=== PATIENT | female | born 1985 | race American Indian/Alaskan Native ===

== ENCOUNTER 2018-12-12 15:44 | Emergency (ER) | payer MEDICAID ==
[2018-12-12] MEDS ORDERED: Sodium Chloride 0.9% 1,000 ML IV ONE (16:10)
[2018-12-12] MEDS ORDERED: Ketorolac 30 MG/ML SDV IVPUSH ONE (16:11)
--- NOTE | 2018-12-12 16:18 | EDM.PDOC ---
ED HPI GENERAL MEDICAL PROBLEM - General Chief Complaint: Headache Stated Complaint: HEADACHE, DIZZY Time Seen by Provider: 12/12/18 15:54 Source of Information: Reports: Patient History Limitations: Reports: No Limitations - History of Present Illness INITIAL COMMENTS - FREE TEXT/NARRATIVE: Presents reporting a three-day history of headache. The patient has a history of migraine headache including during her past pregnancies. This headache is frontal radiating all over the head and is accompanied by photophobia, nausea. She has tried her usual treatments of increasing oral fluids, by mouth Tylenol and sleeping in a dark room. She is 14 weeks . Her supervising OB physician is in [place]. She has an appointment on 01/06/20. Denies dysuria, vomiting, vaginal symptoms. Her has been uncomplicated. 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 - Physical Exam Exam: See Below Exam Limited By: No Limitations General Appearance: Alert, No Apparent Distress Ears: Normal External Exam, Normal TMs Nose: Normal Inspection Throat/Mouth: Normal Inspection, Normal Oropharynx Head Exam: Atraumatic, Normocephalic Neck: Normal Inspection Respiratory/Chest: No Respiratory Distress, Lungs Clear, Normal Breath Sounds Cardiovascular: Normal Peripheral Pulses, Regular Rate, Rhythm, No Murmur Neuro Exam (Abbreviated): Alert, Oriented, CN II-XII Intact, No Motor/Sensory Deficits Back Exam: Normal Inspection Extremities: Normal Inspection Psychiatric: Normal Affect, Normal Mood Skin Exam: Warm, Dry, Intact, Normal Color, No Rash Course - Vital Signs Last Recorded V/S: Last Vital Signs Temp 36.7 C 12/12/18 15:54 Pulse 72 12/12/18 15:54 Resp 18 12/12/18 15:54 BP 118/79 12/12/18 15:54 Pulse Ox 98 12/12/18 15:54 - Orders/Labs/Meds Orders: Active Orders 24 hr Category Date Time Status Morphine Med 12/12/18 17:07 Once 2 mg IVPUSH ONETIME ONE Sodium Chloride 0.9% [Normal Saline] 1,000 ml Med 12/12/18 16:10 Ordered IV STAT Medication Orders Sodium Chloride (Normal Saline) 1,000 mls @ 999 mls/hr IV STAT ONE Stop: 12/12/18 17:10 Last Admin: 12/12/18 16:26 Dose: 999 mls/hr Meds: Medications Generic Name Dose Route Start Last Admin Trade Name Freq PRN Reason Stop Dose Admin Sodium Chloride 1,000 mls @ 999 mls/hr 12/12/18 16:10 12/12/18 16:26 Normal Saline IV 12/12/18 17:10 999 mls/hr STAT ONE Administration Discontinued Medications Generic Name Dose Route Start Last Admin Trade Name Freq PRN Reason Stop Dose Admin Ketorolac Tromethamine 30 mg 12/12/18 16:11 12/12/18 16:27 Toradol IVPUSH 12/12/18 16:12 30 mg ONETIME ONE Administration - Re-Assessments/Exams Free Text/Narrative Re-Assessment/Exam: 12/12/18 17:07 The patient states that she usually gets IV fluids, IV Toradol and IV morphine for her headaches when she has them during her pregnancies. She was given 500 mL of IV fluids and 30 mg of IV Toradol. After about 45 minutes she had no relief from her headache. Therefore, 2 mg of IV morphine was given. Free Text/Narrative Re-Assessment/Exam: Patient states that the headache is better but has migrated to the low occipital area. She states that the morphine helped her most like 2 more milligrams before she goes home. 12/12/18 17:57 Departure - Departure Time of Disposition: 18:14 Disposition: Home, Self-Care 01 Condition: Good Clinical Impression: Migraine headache Qualifiers: Migraine type: other Status migrainosus presence: without status migrainosus Intractability: not intractable Qualified Code(s): G43.809 - Other migraine, not intractable, without status migrainosus - Discharge Information Referrals: PCP,Unknown [Primary Care Provider[facility] - [facility] [Ordering Only Provider] - [facility] [Outside] Forms: ED Department Discharge Additional Instructions: The following information is given to patients seen in the emergency department who are being discharged to home. This information is to outline your options for follow-up care. We provide all patients seen in our emergency department with a follow-up referral. The need for follow-up, as well as the timing and circumstances, are variable depending upon the specifics of your emergency department visit. If you don't have a primary care physician on staff, we will provide you with a referral. We always advise you to contact your personal physician following an emergency department visit to inform them of the circumstance of the visit and for follow-up with them and/or the need for any referrals to a consulting specialist. The emergency department will also refer you to a specialist when appropriate. This referral assures that you have the opportunity for follow-up care with a specialist. All of these measure are taken in an effort to provide you with optimal care, which includes your follow-up. Under all circumstances we always encourage you to contact your private physician who remains a resource for coordinating your care. When calling for follow-up care, please make the office aware that this follow-up is from your recent emergency room visit. If for any reason you are refused follow-up, please contact the [facility] Emergency Department at and asked to speak to the emergency department charge nurse. 1. Follow-up with your OB provider as previously scheduled - My Orders Last 24 Hours: My Active Orders 12/12/18 16:10 Sodium Chloride 0.9% [Normal Saline] 1,000 ml IV STAT 12/12/18 17:07 Morphine 2 mg IVPUSH ONETIME ONE - Assessment/Plan Last 24 Hours: My Active Orders 12/12/18 16:10 Sodium Chloride 0.9% [Normal Saline] 1,000 ml IV STAT 12/12/18 17:07 Morphine 2 mg IVPUSH ONETIME ONE
[2018-12-12] MEDS ORDERED: Morphine 2 MG/ML Syringe IVPUSH ONE ×2 (17:07→17:57)
== END 2018-12-12 18:33 | disposition home or self-care (01) ==
LOC: MW.ED 15:44
DX: O99.352 Diseases of the nervous system complicating pregnancy, second trimester (principal); G43.809 Other migraine, not intractable, without status migrainosus; Z88.1 Allergy status to other antibiotic agents; Z3A.14 14 weeks gestation of pregnancy
CPT/HCPCS: 96361; 96374; 96375; 96376; 99284; J1885; J2270; J7040; 99283

== ENCOUNTER 2018-12-13 18:22 | Emergency (ER) | payer MEDICAID ==
[2018-12-13] MEDS ORDERED: Ondansetron 4 MG/2 ML SDV IVPUSH ONE (18:43)
[2018-12-13] MEDS ORDERED: Acetaminophen 500 MG Tab PO ONE (18:45)
[2018-12-13] MEDS ORDERED: Sodium Chloride 0.9% 1,000 ML IV ONE (18:46)
--- NOTE | 2018-12-13 18:48 | EDM.PDOC ---
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 She denies abdominal pain cramping or other concern. There's been no associated trauma Review of systems: As per history of present illness and below otherwise all systems reviewed and negative. Past medical history: As per history of present illness and as reviewed below otherwise noncontributory. Surgical history: As per history of present illness and as reviewed below otherwise noncontributory. Social history: No reported history of drug or alcohol abuse. Family history: As per history of present illness and as reviewed below otherwise noncontributory. Physical exam: HEENT: Atraumatic, normocephalic, pupils reactive, negative for conjunctival pallor or scleral icterus, mucous membranes moist, throat clear, neck supple, nontender, trachea midline. Lungs: Clear to auscultation, breath sounds equal bilaterally, chest nontender. Heart: S1S2, regular, negative for clicks, rubs, or JVD. Abdomen: Soft, nondistended, nontender. Negative for masses or hepatosplenomegaly. Negative for costovertebral tenderness. Pelvis: Stable nontender. Genitourinary: Deferred. Rectal: Deferred. Extremities: Atraumatic, negative for cords or calf pain. Neurovascular unremarkable. Neuro: Awake, alert, oriented. Cranial nerves II through XII unremarkable. Cerebellum unremarkable. Motor and sensory unremarkable throughout. Exam nonfocal. Diagnostics: heart tones Therapeutics: Saline 1 L bolus Tylenol 1 g by mouth Zofran 4 mg Impression: #1 history of 14 week twin gestations #2 threatened miscarriage #3 migraine headache Definitive disposition and diagnosis as appropriate pending reevaluation and review of above. 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 ED EXAM, GENERAL - Physical Exam Exam: See Below (See dictation) Course - Vital Signs Last Recorded V/S: Last Vital Signs Temp 35.9 C 12/13/18 18:37 Pulse 86 12/13/18 18:37 Resp 17 12/13/18 18:37 BP 99/69 12/13/18 18:37 Pulse Ox 99 12/13/18 18:37 - Orders/Labs/Meds Orders: Active Orders 24 hr Category Date Time Status Heart Tones [RC] ASDIRECTED Care 12/13/18 18:44 Active Meds: Medications Discontinued Medications Generic Name Dose Route Start Last Admin Trade Name Bobbyq PRN Reason Stop Dose Admin Acetaminophen 1,000 mg 12/13/18 18:45 12/13/18 19:04 Tylenol Extra Strength PO 12/13/18 18:46 1,000 mg ONETIME ONE Administration Sodium Chloride 1,000 mls @ 999 mls/hr 12/13/18 18:46 12/13/18 19:04 Normal Saline IV 12/13/18 19:46 999 mls/hr .Bolus ONE Administration Ondansetron HCl 4 mg 12/13/18 18:43 12/13/18 19:04 Zofran IVPUSH 12/13/18 18:44 4 mg ONETIME ONE Administration Departure - Departure Time of Disposition: 20:10 Disposition: Home, Self-Care 01 Condition: Good Clinical Impression: Threatened Migraine headache Qualifiers: Migraine type: other Status migrainosus presence: without status migrainosus Intractability: not intractable Qualified Code(s): G43.809 - Other migraine, not intractable, without status migrainosus - Discharge Information Referrals: PCP,None [Primary Care Provider] - Forms: ED Department Discharge Additional Instructions: The following information is given to patients seen in the emergency department who are being discharged to home. This information is to outline your options for follow-up care. We provide all patients seen in our emergency department with a follow-up referral. The need for follow-up, as well as the timing and circumstances, are variable depending upon the specifics of your emergency department visit. If you don't have a primary care physician on staff, we will provide you with a referral. We always advise you to contact your personal physician following an emergency department visit to inform them of the circumstance of the visit and for follow-up with them and/or the need for any referrals to a consulting specialist. The emergency department will also refer you to a specialist when appropriate. This referral assures that you have the opportunity for followup care with a specialist. All of these measure are taken in an effort to provide you with optimal care, which includes your followup. Under all circumstances we always encourage you to contact your private physician who remains a resource for coordinating your care. When calling for followup care, please make the office aware that this follow-up is from your recent emergency room visit. If for any reason you are refused follow-up, please contact the [facility] emergency department at and asked to speak to the emergency department charge nurse. 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
== END 2018-12-13 20:27 | disposition home or self-care (01) ==
LOC: MW.ED 18:22
DX: O20.0 Threatened abortion (principal); O99.352 Diseases of the nervous system complicating pregnancy, second trimester; G43.809 Other migraine, not intractable, without status migrainosus; O30.002 Twin pregnancy, unspecified number of placenta and unspecified number of amniotic sacs, second trimester; Z88.1 Allergy status to other antibiotic agents; Z3A.14 14 weeks gestation of pregnancy
CPT/HCPCS: 96361; 96374; 99283; A9270; J2405; J7040

== ENCOUNTER 2018-12-14 17:13 | Emergency (ER) | payer MEDICAID ==
--- NOTE | 2018-12-14 17:29 | EDM.PDOC ---
ED HPI GENERAL MEDICAL PROBLEM - General Stated Complaint: BLEEDING Time Seen by Provider: 12/14/18 17:18 Source of Information: Reports: Patient History Limitations: Reports: No Limitations - History of Present Illness INITIAL COMMENTS - FREE TEXT/NARRATIVE: HISTORY AND PHYSICAL: History of present illness: Patient is a 33-year-old female who presents to the emergency room today with complaints of vaginal bleeding in . Patient has been seen the 2 previous days for migraine headache, was treated with IV fluids and medications. She states that yesterday she started spotting which has continued into today. Continues to have intermittent headache and nausea. States she currently has a frontal headache with out noise or light sensitivity. Denies any current nausea or vomiting. Denies any abdominal pain or cramping. Patient denies any fever, chills, neck pain/stiffness, change in vision, syncope or near syncope. Denies any chest pain, back pain, shortness of breath or cough. Denies any diarrhea, constipation or dysuria. Has not noted any blood in urine or stool. Patient has been eating and drinking appropriately. LMP: August [address] Huff in [facility] (Patient lives in [place]) P:5 Review of systems: As per history of present illness and below otherwise all systems reviewed and negative. Past medical history: As per history of present illness and as reviewed below otherwise noncontributory. Surgical history: As per history of present illness and as reviewed below otherwise noncontributory. Social history: See social history for further information Family history: As per history of present illness and as reviewed below otherwise noncontributory. Physical exam: General: Well-developed and well-nourished 33-year-old female. Alert and oriented. Nontoxic appearing and in no acute distress. HEENT: Atraumatic, normocephalic, pupils equal and reactive bilaterally, negative for conjunctival pallor or scleral icterus, mucous membranes moist, TMs normal bilaterally, throat clear, neck supple, nontender, trachea midline. No drooling or trismus noted. No meningeal signs. No hot potato voice noted. Lungs: Clear to auscultation, breath sounds equal bilaterally, chest nontender. Heart: S1S2, regular rate and rhythm without overt murmur Abdomen: Soft, nondistended, nontender. Negative for masses or hepatosplenomegaly. Negative for costovertebral tenderness. Pelvis: Stable nontender. Genitourinary: Deferred. Rectal: Deferred. Skin: Intact, warm, dry. No lesions or rashes noted. Extremities: Atraumatic, moves all extremities per self without difficulty or deficits, negative for cords or calf pain. Neurovascular unremarkable. Neuro: Awake, alert, oriented. Cranial nerves II through XII unremarkable. Cerebellum unremarkable. Motor and sensory unremarkable throughout. Exam nonfocal. Notes: Patient states that she had previously established care with an UTILITY TELLER in [facility] she had planned to get her tubes tied. Shortly after establishing that relationship she had found out she was , therefore continued her UTILITY TELLER care through them. She does live in [place] and does plan on finding a care provider here to manage her . Lab work is unremarkable. Ultrasound shows single living intrauterine twin pregnancies, the chronicity and amnionicity of which are uncertain on the provided views. Small hypoechoic collection adjacent to the superior aspect of the gestational sac, away from the os, may represent a small subchorionic hemorrhage. Nonemergent follow-up US is recommended for more complete evaluation. Diagnostics were shared with the patient. Encouraged her to follow- up and she does need a repeat quantitative hCG and ultrasound. Supportive care measures were reviewed and discussed. Voices understanding and is agreeable to plan of care. Denies any further questions or concerns at this time. Diagnostics: CBC, CMP, AB/RH, UA, OB ultrasound Therapeutics: None Prescription: None Impression: Threatened Plan: 1. Tylenol as needed for pain management. 2. Follow-up with your UTILITY TELLER as we discussed, need to have your quant HCG repeated on Tuesday. It would be beneficial for you to establish care with an OBGYN here in [place] if you plan on delivering or needing any future OB care here. 3. Return to the ED as needed and as discussed. Definitive disposition and diagnosis as appropriate pending reevaluation and review of above. 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 ED EXAM - Physical Exam Exam: See Below (See dictation) Course - Vital Signs Last Recorded V/S: Last Vital Signs Temp 97.9 F 12/14/18 17:33 Pulse 53 L 12/14/18 19:09 Resp 17 12/14/18 19:09 BP 120/49 L 12/14/18 19:09 Pulse Ox 100 12/14/18 19:09 - Orders/Labs/Meds Labs: Laboratory Tests 12/14/18 12/14/18 12/14/18 Range/Units 17:36 17:45 17:45 WBC 7.88 (4.0-11.0) K/uL RBC 4.89 (4.30-5.90) M/uL Hgb 10.2 L (12.0-16.0) g/dL Hct 33.4 L (36.0-46.0) % MCV 68.3 L (80.0-98.0) fL MCH 20.9 L (27.0-32.0) pg MCHC 30.5 L (31.0-37.0) g/dL RDW Std Deviation 42.9 (28.0-62.0) fl RDW Coeff of Adenike 17 H (11.0-15.0) % Plt Count 341 (150-400) K/uL MPV 9.90 (7.40-12.00) fL Neut % (Auto) 69.1 (48.0-80.0) % Lymph % (Auto) 24.6 (16.0-40.0) % Alger % (Auto) 4.8 (0.0-15.0) % Eos % (Auto) 1.4 (0.0-7.0) % Baso % (Auto) 0.1 (0.0-1.5) % Neut # (Auto) 5.4 (1.4-5.7) K/uL Lymph # (Auto) 1.9 (0.6-2.4) K/uL Alger # (Auto) 0.4 (0.0-0.8) K/uL Eos # (Auto) 0.1 (0.0-0.7) K/uL Baso # (Auto) 0.0 (0.0-0.1) K/uL Nucleated RBC % 0.0 /100WBC Nucleated RBCs # 0 K/uL Sodium 137 (136-145) mmol/L Potassium 3.8 (3.5-5.1) mmol/L Chloride 107 (98-107) mmol/L Carbon Dioxide 20.5 L (21.0-32.0) mmol/L BUN 8 (7.0-18.0) mg/dL Creatinine 0.6 (0.6-1.0) mg/dL Est Cr Clr Drug Dosing 156.78 mL/min Estimated GFR (MDRD) > 60.0 ml/min Glucose 88 (74-106) mg/dL Calcium 8.9 (8.5-10.1) mg/dL Total Bilirubin 0.3 (0.2-1.0) mg/dL AST 13 L (15-37) IU/L ALT 21 (14-63) IU/L Alkaline Phosphatase 95 (46-116) U/L Total Protein 7.5 (6.4-8.2) g/dL Albumin 2.6 L (3.4-5.0) g/dL Globulin 4.9 H (2.6-4.0) g/dL Albumin/Globulin Ratio 0.5 L (0.9-1.6) HCG, Quant 275657.0 mIU/mL Urine Color YELLOW Urine Appearance CLEAR Urine pH 5.5 (5.0-8.0) Ur Specific Frazee 1.025 (1.001-1.035) Urine Protein NEGATIVE (NEGATIVE) mg/dL Urine Glucose (UA) NEGATIVE (NEGATIVE) mg/dL Urine Ketones NEGATIVE (NEGATIVE) mg/dL Urine Occult Blood LARGE H (NEGATIVE) Urine Nitrite NEGATIVE (NEGATIVE) Urine Bilirubin NEGATIVE (NEGATIVE) Urine Urobilinogen 0.2 (<2.0) EU/dL Ur Leukocyte Esterase NEGATIVE (NEGATIVE) Urine RBC 3-5 (0-2/HPF) Urine WBC 2-3 (0-5/HPF) Ur Epithelial Cells FEW (NONE-FEW) Amorphous Sediment FEW (NEGATIVE) Urine Bacteria FEW (NEGATIVE) Urine Mucus FEW (NONE-MOD) Blood Type 12/14/18 Range/Units 17:45 WBC (4.0-11.0) K/uL RBC (4.30-5.90) M/uL Hgb (12.0-16.0) g/dL Hct (36.0-46.0) % MCV (80.0-98.0) fL MCH (27.0-32.0) pg MCHC (31.0-37.0) g/dL RDW Std Deviation (28.0-62.0) fl RDW Coeff of Adenike (11.0-15.0) % Plt Count (150-400) K/uL MPV (7.40-12.00) fL Neut % (Auto) (48.0-80.0) % Lymph % (Auto) (16.0-40.0) % Alger % (Auto) (0.0-15.0) % Eos % (Auto) (0.0-7.0) % Baso % (Auto) (0.0-1.5) % Neut # (Auto) (1.4-5.7) K/uL Lymph # (Auto) (0.6-2.4) K/uL Alger # (Auto) (0.0-0.8) K/uL Eos # (Auto) (0.0-0.7) K/uL Baso # (Auto) (0.0-0.1) K/uL Nucleated RBC % /100WBC Nucleated RBCs # K/uL Sodium (136-145) mmol/L Potassium (3.5-5.1) mmol/L Chloride (98-107) mmol/L Carbon Dioxide (21.0-32.0) mmol/L BUN (7.0-18.0) mg/dL Creatinine (0.6-1.0) mg/dL Est Cr Clr Drug Dosing mL/min Estimated GFR (MDRD) ml/min Glucose (74-106) mg/dL Calcium (8.5-10.1) mg/dL Total Bilirubin (0.2-1.0) mg/dL AST (15-37) IU/L ALT (14-63) IU/L Alkaline Phosphatase (46-116) U/L Total Protein (6.4-8.2) g/dL Albumin (3.4-5.0) g/dL Globulin (2.6-4.0) g/dL Albumin/Globulin Ratio (0.9-1.6) HCG, Quant mIU/mL Urine Color Urine Appearance Urine pH (5.0-8.0) Ur Specific Frazee (1.001-1.035) Urine Protein (NEGATIVE) mg/dL Urine Glucose (UA) (NEGATIVE) mg/dL Urine Ketones (NEGATIVE) mg/dL Urine Occult Blood (NEGATIVE) Urine Nitrite (NEGATIVE) Urine Bilirubin (NEGATIVE) Urine Urobilinogen (<2.0) EU/dL Ur Leukocyte Esterase (NEGATIVE) Urine RBC (0-2/HPF) Urine WBC (0-5/HPF) Ur Epithelial Cells (NONE-FEW) Amorphous Sediment (NEGATIVE) Urine Bacteria (NEGATIVE) Urine Mucus (NONE-MOD) Blood Type B POSITIVE Departure - Departure Time of Disposition: 19:46 Disposition: Home, Self-Care 01 Clinical Impression: Threatened - Discharge Information Instructions: Threatened Miscarriage, [id number] Referrals: PCP,Not In Area [Primary Care Provider] - Additional Instructions: The following information is given to patients seen in the emergency department who are being discharged to home. This information is to outline your options for follow-up care. We provide all patients seen in our emergency department with a follow-up referral. The need for follow-up, as well as the timing and circumstances, are variable depending upon the specifics of your emergency department visit. If you don't have a primary care physician on staff, we will provide you with a referral. We always advise you to contact your personal physician following an emergency department visit to inform them of the circumstance of the visit and for follow-up with them and/or the need for any referrals to a consulting specialist. The emergency department will also refer you to a specialist when appropriate. This referral assures that you have the opportunity for follow-up care with a specialist. All of these measure are taken in an effort to provide you with optimal care, which includes your follow-up. Under all circumstances we always encourage you to contact your private physician who remains a resource for coordinating your care. When calling for follow-up care, please make the office aware that this follow-up is from your recent emergency room visit. If for any reason you are refused follow-up, please contact the [facility] Emergency Department at and asked to speak to the emergency department charge nurse. [facility] Primary Care: [facility] [address] [place] [id number] [facility] [address] [place] [address] 1. Tylenol as needed for pain management. 2. Follow-up with your UTILITY TELLER as we discussed, need to have your quant HCG repeated on Tuesday. It would be beneficial for you to establish care with an OBGYN here in [place] if you plan on delivering or needing any future OB care here. 3. Return to the ED as needed and as discussed.
[2018-12-14 18:41] LABS: CHLORIDE,CL 107 mmol/L (98-107); SODIUM,NA 137 mmol/L (136-145)
--- NOTE | 2018-12-14 19:40 | US ---
INDICATION: vaginal bleeding this a.m. COMPARISON: None available. TECHNIQUE: Routine transabdominal OB ultrasound. Transvaginal portion the exam was deferred at the ordering priors request. FINDINGS: There are live twin intrauterine pregnancies. The chronicity and amnionicity is uncertain on the provided views, but may be monochorionic diamniotic with an apparent thin membrane. Both fetus A and B demonstrate crown-rump length corresponding to a gestational age of 11 weeks 3 days with an VANESA of 07[birth year]02/2017. cardiac activity is appreciated in both fetuses with fetus A cardiac rate calculated at 160 BPM and fetus B cardiac rate calculated at 158 BPM. There is a small hypoechoic fluid collection adjacent to the superior aspect of the gestational sac, near the insertion of the membrane away from the level of the cervix. This measures approximately 1.5 cm in diameter. The cervix is within normal limits measuring 3.1 cm in length. IMPRESSION: Single living intrauterine twin pregnancies, the chronicity and amnionicity of which are uncertain on the provided views. Small hypoechoic collection adjacent to the superior aspect of the gestational sac, away from the os, may represent a small subchorionic hemorrhage. Nonemergent follow-up US is recommended for more complete evaluation. Dictated by Lionel Monzon MD @ 12/14/2018 7:39:17 PM Dictated by: Lionel Monzon MD @ 12/14/2018 19:39:21 (Electronically Signed)
== END 2018-12-14 19:54 | disposition home or self-care (01) ==
LOC: MW.ED 17:13
DX: O20.0 Threatened abortion (principal); Z88.1 Allergy status to other antibiotic agents; Z79.899 Other long term (current) drug therapy; Z3A.14 14 weeks gestation of pregnancy
CPT/HCPCS: 36415; 76801; 76801-26; 80053; 81001; 84702; 85025; 86900; 86901; 99284; 99284-25

== ENCOUNTER 2019-12-07 21:54 | Observation (INO) | payer MEDICAID | END 2019-12-08 00:10 | disposition home or self-care (01) | LOC: MW.OBCHECK 21:54 → MW.OB 21:55 → MW.OBCHECK 22:58 | PROVIDERS: ADMIT Obstetrics & Gynecology; ATTEND Obstetrics & Gynecology | DX: O47.03 False labor before 37 completed weeks of gestation, third trimester (principal); Z3A.35 35 weeks gestation of pregnancy | CPT/HCPCS: 59025; 81003; G0378 ==